=== PATIENT | female | born 1945 | race Hispanic/Latino ===

== ENCOUNTER 2018-09-07 23:03 | Emergency (ER) | payer MEDICARE ==
[~2018-09-07] VITALS: Ht 152.4 cm; Wt 78.0 kg
[~2018-09-07 23:03] MED LIST: BIOXTRON PO; CENTRUM SILVER1 EAC3 PO; CIPROFLOXACIN500 MG PO; FUROSEMIDE40 MG PO; GLUCOPHAGE850 MG PO; HYDROCODON-ACE1 EA11 PO; KLOR-CON 1010 MEQ PO; LOTENSIN40 MG PO; LOVAZA1 GM PO; LYRICA100 MG PO; METRONIDAZOLE500 MG PO; NITROFURANTOIN100 MG PO; ONDANSETRON HCL4 MG PO; TOPROL XL25 MG PO; ZOCOR20 MG PO
[2018-09-07] MEDS ORDERED: INSULIN REGULAR, HUMAN 100 UNIT/1 ML 3ML VIAL SQ ONE (23:30)
[2018-09-07] MEDS ORDERED: CLONIDINE HCL 0.2 MG TAB PO ONE (23:30)
[2018-09-08 01:51] VITALS: BP 140/71
== END 2018-09-08 01:53 | disposition home or self-care (01) ==
LOC: ER 23:03
DX: I10 Essential (primary) hypertension (principal); E11.65 Type 2 diabetes mellitus with hyperglycemia; F03.90 Unspecified dementia, unspecified severity, without behavioral disturbance, psychotic disturbance, mood disturbance, and anxiety; E78.5 Hyperlipidemia, unspecified
CPT/HCPCS: 36415; 82948; 99283; J1817